=== PATIENT | male | born 1945 | race Caucasian/White ===

== ENCOUNTER 2022-08-02 04:06 | Inpatient (IN) ==
[2022-08-02] MEDS ORDERED: Melatonin 3 MG TABLET PO PRN (07:36)
[2022-08-02] MEDS ORDERED: Ondansetron 4 MG/2 ML VIAL IVP PRN (07:36)
[2022-08-02] MEDS ORDERED: Naloxone 0.4 MG/ML INJ IVP PRN (07:36)
[2022-08-02] MEDS ORDERED: *HR* Dextrose 50 % in Water (Syg) 50 ML SYRINGE IVP PRN (07:39)
[2022-08-02] MEDS ORDERED: Dextrose Gel 15 GM/37.5 ML TUBE PO PRN ×2 (07:39)
[2022-08-02] MEDS ORDERED: D5% in Water 1,000 ML IVC PRN (07:39)
[2022-08-02 08:29] LABS: Hematocrit 40.1 % (37.5-50.1); Hemoglobin 12.9 g/dL (12.9-16.9); Mean Corpuscular HGB Conc 32.2 g/dL (31.6-35.5); Mean Corpuscular Hemoglobin 28.6 pg (28.0-33.3); Mean Corpuscular Volume 88.9 fL (83.0-100.0); Mean Platelet Volume 10.7 fL (9.4-12.4); Platelet Count 143 K/mcL (140-400); Red Blood Count 4.51 M/mcL (4.19-5.50); Red Cell Distribution Width 13.2 % (11.5-14.5); White Blood Count 9.7 K/mcL (4.3-11.1)
[2022-08-02 08:35] LABS: INR 1.1; Prothrombin Time 12.1 Seconds (9.4-12.1)
[2022-08-02 08:45] LABS: Calcium 9.4 mg/dL (8.6-10.3); Potassium 4.4 mEq/L (3.5-5.1)
[2022-08-02] MEDS: amLODIPine 5 MG TABLET PO SCH (11:02)
[2022-08-02] MEDS: *HR* OxyCODONE Immed Rel 5 MG TABLET PO PRN ×2 (11:02→15:27)
[2022-08-03] MEDS ORDERED: 0.9 % Sodium Chloride 1,000 ML IVC SCH (00:15)
[2022-08-03] MEDS: *HR* OxyCODONE Immed Rel 5 MG TABLET PO PRN (03:46)
[2022-08-03] MEDS ORDERED: *HR* OxyCODONE/APAP 10/325 TABLET PO PRN (04:21)
[2022-08-03] MEDS ORDERED: *HR* OxyCODONE Immed Rel 5 MG TABLET PO ONE (04:27)
[2022-08-03] MEDS ORDERED: *HR* OxyCODONE Immed Rel 5 MG TABLET PO PRN ×2 (04:28→13:52)
[2022-08-03] MEDS ORDERED: *HR* FentaNYL (PF) 100 MCG/2 ML VIAL ONE ×3 (07:26→11:26)
[2022-08-03] MEDS ORDERED: *HR* Propofol 200 MG/20 ML VIAL IVP ONE ×2 (07:27→09:03)
[2022-08-03] MEDS: amLODIPine 5 MG TABLET PO SCH (07:47)
[2022-08-03] MEDS ORDERED: atenoloL 50 MG TABLET PO SCH (09:00)
[2022-08-03] MEDS ORDERED: Lidocaine HCL 4 ML Topical Solution (Laryng-O-Jet Kit Sterile Pak) TP ONE (09:02)
[2022-08-03] MEDS ORDERED: Ondansetron 4 MG/2 ML VIAL ONE (09:02)
[2022-08-03] MEDS ORDERED: Lidocaine -MPF 2% 2 ML VIAL ONE (09:02)
[2022-08-03] MEDS ORDERED: *HR* Rocuronium Bromide 50 MG/5 ML VIAL ONE ×2 (09:02→10:48)
[2022-08-03] MEDS ORDERED: Albuterol 2.5 MG/3 ML NEBULIZER IH PRN (09:24)
[2022-08-03] MEDS ORDERED: *HR* FentaNYL (PF) 100 MCG/2 ML VIAL IVP PRN (09:24)
[2022-08-03] MEDS ORDERED: Ondansetron 4 MG/2 ML VIAL IVP PRN ×3 (09:24→13:52)
[2022-08-03] MEDS ORDERED: CeFAZolin Syr 2,000MG/20 ML 2,000 MG/20 ML SYRINGE IVPB ONE (09:35)
[2022-08-03] MEDS ORDERED: Ringers Solution, Lactated 1,000 ML IVC SCH ×2 (09:45→13:52)
[2022-08-03] MEDS ORDERED: TOTAL JOINT MIXTURE (100ML) INTRAART ONE (10:00)
[2022-08-03] MEDS ORDERED: Povidone-Iodine 45 ML, Sodium Chloride IRRigation 1,000 ML IR ONE (10:00)
[2022-08-03] MEDS ORDERED: Vancomycin 1,000 MG VIAL ONE (10:13)
[2022-08-03] MEDS ORDERED: Tranexamic Acid 1,000 MG/10 ML VIAL ONE (10:39)
[2022-08-03] MEDS ORDERED: EPHEDrine sulfate 50 MG/10 ML VIAL IVP ONE (11:04)
[2022-08-03] MEDS ORDERED: Sugammadex Sodium 200 MG/2 ML VIAL IV ONE (11:35)
[2022-08-03] MEDS ORDERED: Dextrose Gel 15 GM/37.5 ML TUBE PO PRN ×3 (13:52→21:31)
[2022-08-03] MEDS ORDERED: Sennosides 8.6 MG TABLET PO PRN (13:52)
[2022-08-03] MEDS ORDERED: Melatonin 3 MG TABLET PO PRN (13:52)
[2022-08-03] MEDS ORDERED: D5% in Water 1,000 ML IVC PRN (13:52)
[2022-08-03] MEDS ORDERED: Naloxone 0.4 MG/ML INJ IVP PRN ×2 (13:52)
[2022-08-03] MEDS ORDERED: *HR* Dextrose 50 % in Water (Syg) 50 ML SYRINGE IVP PRN (13:52)
[2022-08-03] MEDS ORDERED: *HR* Promethazine 25 MG/ML VIAL IM PRN (13:52)
[2022-08-03] MEDS ORDERED: MOM Conc 10 ML UD.LIQ PO PRN (13:52)
[2022-08-03] MEDS: Ascorbic Acid 500 MG TABLET PO SCH (15:41)
[2022-08-03] MEDS: Ketorolac 30 MG/ML VIAL IVP SCH ×2 (17:43→23:20)
[2022-08-03] MEDS: CeFAZolin 2 GM/120 ML BAG IVPB SCH (18:12)
[2022-08-03] MEDS: rOPINIRole 1 MG TABLET PO SCH (20:42)
[2022-08-03] MEDS: Insulin LISPRO 300 UNITS/3 ML VIAL SUBQ SCH (22:05)
[2022-08-04] MEDS: CeFAZolin 2 GM/120 ML BAG IVPB SCH (03:06)
[2022-08-04 03:53] LABS: Basophils % 0.1 %; Hematocrit 35.4 % (37.5-50.1); Hemoglobin 11.4 g/dL (12.9-16.9); Immature Granulocytes % 0.6 % (0-4); Lymphocytes # 0.9 K/mcL (0.6-4.6); Lymphocytes % 5.7 %; Mean Corpuscular HGB Conc 32.2 g/dL (31.6-35.5); Mean Corpuscular Hemoglobin 28.6 pg (28.0-33.3); Mean Corpuscular Volume 88.7 fL (83.0-100.0); Mean Platelet Volume 10.5 fL (9.4-12.4); Monocytes # 1.1 K/mcL (0.0-1.3); Neutrophils # 13.4 K/mcL (1.6-8.9); Platelet Count 130 K/mcL (140-400); Red Blood Count 3.99 M/mcL (4.19-5.50); Red Cell Distribution Width 13.2 % (11.5-14.5); Segmented Neutrophils % 86.6 %
[2022-08-04 03:55] LABS: White Blood Count 15.5 K/mcL (4.3-11.1)
[2022-08-04 04:12] LABS: Calcium 9.4 mg/dL (8.6-10.3); Potassium 4.3 mEq/L (3.5-5.1)
[2022-08-04] MEDS: Ketorolac 30 MG/ML VIAL IVP SCH (05:10)
[2022-08-04] MEDS ORDERED: Mirabegron [Myrbetriq] 50 MG Tab.Er.24h PO PRN (07:43)
[2022-08-04] MEDS: *HR* OxyCODONE Immed Rel 5 MG TABLET PO PRN ×2 (09:47→18:09)
[2022-08-04] MEDS: amLODIPine 5 MG TABLET PO SCH (09:48)
[2022-08-04] MEDS: Ascorbic Acid 500 MG TABLET PO SCH ×2 (09:48→17:17)
[2022-08-04] MEDS: Multivit/Ca/Min/Fe/FA 1 TAB TABLET PO SCH (09:48)
[2022-08-04] MEDS: atenoloL 50 MG TABLET PO SCH (09:49)
[2022-08-04] MEDS: Insulin LISPRO 300 UNITS/3 ML VIAL SUBQ SCH ×4 (09:55→21:38)
[2022-08-04] MEDS: 0.9 % Sodium Chloride 1,000 ML IVC SCH ×2 (10:33→21:38)
[2022-08-04] MEDS ORDERED: 0.9 % Sodium Chloride 1,000 ML IVC SCH (12:15)
[2022-08-04] MEDS: Aspirin Enteric Coated 81 MG Tablet PO SCH (12:22)
[2022-08-04] MEDS: *HR* Heparin 5,000 UNIT/ML VIAL SQ SCH ×2 (15:18→21:40)
[2022-08-04] MEDS ORDERED: traZODone 50 MG TABLET PO SCH (21:00)
[2022-08-04] MEDS ORDERED: Insulin LISPRO 300 UNITS/3 ML VIAL SUBQ SCH (21:00)
[2022-08-04] MEDS: rOPINIRole 1 MG TABLET PO SCH (21:37)
[2022-08-05 03:32] VITALS: O2SAT 90
[2022-08-05 04:38] LABS: Basophils % 0.3 %; Eosinophils # 0.2 K/mcL (0.0-0.6); Hematocrit 30.9 % (37.5-50.1); Hemoglobin 9.9 g/dL (12.9-16.9); Immature Granulocytes % 0.7 % (0-4); Lymphocytes # 1.2 K/mcL (0.6-4.6); Lymphocytes % 10.5 %; Mean Corpuscular Hemoglobin 28.6 pg (28.0-33.3); Mean Corpuscular Volume 89.3 fL (83.0-100.0); Mean Platelet Volume 11.3 fL (9.4-12.4); Monocytes % 8.7 %; Neutrophils # 8.5 K/mcL (1.6-8.9); Platelet Count 119 K/mcL (140-400); Red Blood Count 3.46 M/mcL (4.19-5.50); Red Cell Distribution Width 13.3 % (11.5-14.5); Segmented Neutrophils % 77.8 %; White Blood Count 10.9 K/mcL (4.3-11.1)
[2022-08-05 04:56] LABS: Calcium 8.8 mg/dL (8.6-10.3)
[2022-08-05] MEDS: *HR* Heparin 5,000 UNIT/ML VIAL SQ SCH (05:48)
[2022-08-05] MEDS: *HR* OxyCODONE Immed Rel 5 MG TABLET PO PRN (05:55)
[2022-08-05] MEDS: 0.9 % Sodium Chloride 1,000 ML IVC SCH (07:06)
[2022-08-05 07:32] VITALS: BP 175/82; PULSE 83; TEMP 97.9
[2022-08-05] MEDS: Aspirin Enteric Coated 81 MG Tablet PO SCH (07:51)
[2022-08-05] MEDS: Multivit/Ca/Min/Fe/FA 1 TAB TABLET PO SCH (07:51)
[2022-08-05] MEDS: amLODIPine 5 MG TABLET PO SCH (07:51)
[2022-08-05] MEDS: Ascorbic Acid 500 MG TABLET PO SCH (07:52)
[2022-08-05] MEDS: atenoloL 50 MG TABLET PO SCH (07:52)
[2022-08-05] MEDS: Insulin LISPRO 300 UNITS/3 ML VIAL SUBQ SCH ×2 (07:52→12:48)
== END 2022-08-05 13:34 | disposition home health service (06) | DRG 522 ==
LOC: 4WAOSI → SUATTDRO 07:09
PROVIDERS: ADMIT Internal Medicine; ATTEND Hospitalist